=== PATIENT | male | born 1985 | race Caucasian/White ===

== ENCOUNTER 2022-01-03 08:33 | Emergency (ER) | payer OTHER ==
[2022-01-03 11:52] VITALS: BP 138/82
== END 2022-01-03 12:10 | disposition home or self-care (01) ==
LOC: ED 08:33
DX: R51.9 Headache, unspecified (principal); M79.18 Myalgia, other site; V87.7XXA Person injured in collision between other specified motor vehicles (traffic), initial encounter; Y93.89 Activity, other specified; Y92.488 Other paved roadways as the place of occurrence of the external cause; Y99.8 Other external cause status
CPT/HCPCS: 99282